=== PATIENT | male | born 1985 | race Caucasian/White ===

== ENCOUNTER 2016-02-27 13:02 | Emergency (ER) | payer SELFPAY ==
[2016-02-27 13:32] VITALS: BP 133/82; PULSE 86; TEMP 97.9; BMI 27.6
--- NOTE | 2016-02-27 13:52 | EDPRACDOC ---
- General Information Stated Complaint: LEFT FIRST FINGER INJURY Time Seen by Provider: 02/27/16 13:47 Information Source: Patient Home Medications: Home Medications Cephalexin Monohydrate [Keflex] 500 mg PO Q8H #30 cap 01/01/16 Oxycodone HCl/Acetaminophen [Percocet 5-325 mg Tablet] 1 each PO Q4 #30 tablet 01/01/16 Sulfamethoxazole/Trimethoprim [Bactrim Ds Tablet] 1 tab PO BID #20 tab 01/01/16 Clindamycin [Cleocin] 150 mg PO Q6 #56 cap 01/13/16 Meloxicam [Mobic] 15 mg PO DAILY #30 tab 01/13/16 Oxycodone HCl/Acetaminophen [Percocet 5-325 mg Tablet] 1 tab PO Q6H PRN #15 tab 02/27/16 Allergies/Adverse Reactions: Allergies Allergy/AdvReac Type Severity Reaction Status Date / Time vancomycin Allergy See Verified 01/01/16 01:34 Comments - History of Present Illness Onset: 3 days HPI: Pt states he hit his L 2nd distal finger with hammer 3 days ago. C/o pain, swelling and numbness. R hand dominate. Location: Reports: Left, 2nd Finger Dominant Hand: Right Mechanism: Reports: Blunt Trauma, Spontaneous Circumstances: Reports: Work-Related Associated Signs & Symptoms: Reports: Numbness, Subungual Hematoma ED Past Medical History - History Reviewed Yes Nurses notes reviewed and agree except as marked - Patient Medical History Psychological History: Denies: Depression Surgical History: Reports: Tonsillectomy/Adnoidectomy - Social Medical History Smoking Status: Heavy tobacco smoker (5 or more cigarettes/day or daily pipe/ cigar) ETOH: None Substance Abuse: None EDM Review of Systems - Review of Systems Constitutional: No Symptoms Reported. negative: Fever, Chills, Weakness, Fatigue, Loss of Appetite Neurological: Numbness Musculoskeletal: Hand Integumentary: Bruising Allergic/Immunologic: No Symptoms Reported. negative: Hives, Itching Hematologic: No Symptoms Reported. negative: Lymphadenopathy, Easy Bruising, Easy Bleeding Psychiatric: No Symptoms Reported. negative: Anxiety, Depression, Hallucinations, Insomnia, Suicidal - Physical Exam Constitutional: Alert Oriented to: Time, Person, Place Last recorded Vital Signs: Last Vital Signs Temp 97.9 F 02/27/16 13:31 Pulse 86 02/27/16 13:31 Resp 20 02/27/16 13:31 BP 133/82 02/27/16 13:31 Pulse Ox 97 02/27/16 13:31 Oxygen Pulse Oxygen Saturation 97 O2 Device Room Air Oxygen Flow Rate Fraction of Inspired Oxygen ( FIO2) - HEENT Head: Normal ( normocephalic) - Respiratory/Cardiovascular Respiratory: Normal - CTA (BBS clear to auscultation without adventitious sounds ) Cardiovascular: Normal (RRR without murmur, gallop or rub) - Integumentary Skin: Normal, Warm, Dry Lymphatics: Normal (no adenopathy) - Neurologic Memory Impaired: Normal Motor Function: Normal (Normal tone, Pulses 2+ No cyanosis or edema, FROM) Mood Description: Normal Perception: Normal ED Hand Problem Physical Exam - Musculoskeletal Hand: Normal Wrist: Normal Digit: Limited ROM (L 2nd finger), Mild Tenderness (distal) Digit Strength: Flexion (decreased), Decreased Extension, Other (decreased abduction and adduction) Nail: Normal Nailbed: Subungual Hematoma (1/3 of nail) Soft Tissue: Tender, Swelling Distal Function/Circulation: Normal - Integumentary Skin: Swelling Lymphatics: Normal ED Procedures - Splinting 1st splint Location: l2nd finger Pre-Made Type: finger splint Pre-Proc Neuro Vasc Exam: normal Post-Proc Neuro Vasc Exam: normal - Nail Trepanation Informed of risks, benefits and alternatives described.: Yes Informed Consent Signed: Verbal Indication: L 2nd finger subungnal hematoma Nail Trepanation Location: L 2nd finger proximal Method of Drainage: nail cauterized Finger Splint: Yes Progress: nothing drained - Differential Diagnosis Contusion, Fracture, Hematoma, Sprain Decision Time to Discharge: 14:33 - Departure Disposition: Home Condition: Good Final Diagnosis: Fracture of distal phalanx of left index finger Qualifiers: Encounter type: initial encounter Fracture type: closed Fracture alignment: nondisplaced Qualified Code(s): S62.661A - Nondisplaced fracture of distal phalanx of left index finger, initial encounter for closed fracture Subungual hematoma of finger Qualifiers: Encounter type: initial encounter Qualified Code(s): S60.10XA - Contusion of unspecified finger with damage to nail, initial encounter Instructions: RICE: Routine Care for Injuries, Finger Fracture (ED), Subungual Hematoma (ED) Education/Counseling Given To: Patient Education/Counseling Given Regarding: Diagnosis, Treatment, Follow Up Referrals: None,No Provider [Primary Care Provider] - One Week Paulo Stone MD [Staff Physician] - One Week Prescriptions: Oxycodone HCl/Acetaminophen [Percocet 5-325 mg Tablet] 1 tab PO Q6H PRN #15 tab PRN Reason: Pain Additional Instructions: Elevate affected area as much as possible, apply cold compresses 20 mins at a time as needed for pain or swelling, wear splint until you follow up with orthopedics.
--- NOTE | 2016-02-27 14:54 | DIRPT ---
CLINICAL DATA: Pain and numbness after crush injury 2 days ago. EXAM: LEFT FINGER(S) - 2+ VIEW COMPARISON: None. FINDINGS: There is a comminuted slightly displaced fracture of the shaft of the distal phalanx of the index finger. The other bones are normal. IMPRESSION: Comminuted fracture of the distal phalanx of the index finger Electronically Signed By: Kobe Yeager M.D. On: 02/27/2016 14:51
== END 2016-02-27 14:47 | disposition home or self-care (01) ==
LOC: ED 13:02 → EDMC 14:47
DX: S62.661A Nondisplaced fracture of distal phalanx of left index finger, initial encounter for closed fracture (principal); S60.122A Contusion of left index finger with damage to nail, initial encounter; W22.8XXA Striking against or struck by other objects, initial encounter; F17.200 Nicotine dependence, unspecified, uncomplicated
CPT/HCPCS: 11740; 29130; 99282